=== PATIENT | female | born 1955 | race Caucasian/White ===

== ENCOUNTER → 2021-11-14 | Outpatient (REF) | payer OTHER, SELFPAY | END | disposition home or self-care (01) | LOC: ANHLAB 11:51 | PROVIDERS: PCP Family Medicine; Visit Provider Nurse Practitioner | DX: D18.01 Hemangioma of skin and subcutaneous tissue (principal) | CPT/HCPCS: 88305 ==

== ENCOUNTER 2022-10-17 10:31 | Outpatient (CLI) | payer MEDICARE, SELFPAY | END 2022-10-17 10:32 | disposition home or self-care (01) | LOC: ANHAUDIO 10:31 | PROVIDERS: PCP Family Medicine; Visit Provider Otolaryngology | DX: H90.A22 Sensorineural hearing loss, unilateral, left ear, with restricted hearing on the contralateral side (principal) | CPT/HCPCS: 92557; 92567 ==